=== PATIENT | female | born 1980 | race Caucasian/White ===

== ENCOUNTER 2017-04-12 21:58 | Emergency (ER) | payer OTHER, BC ==
[~2017-04-12] VITALS: Ht 149.9 cm; Wt 65.2 kg
[2017-04-13] MEDS ORDERED: INDOCIN50 MG PO (00:57)
[2017-04-13 01:09] VITALS: BP 134/70
== END 2017-04-13 01:17 | disposition home or self-care (01) ==
LOC: EME 21:58
DX: M54.2 Cervicalgia (principal); S20.212A Contusion of left front wall of thorax, initial encounter; S80.02XA Contusion of left knee, initial encounter; V49.40XA Driver injured in collision with unspecified motor vehicles in traffic accident, initial encounter; W22.10XA Striking against or struck by unspecified automobile airbag, initial encounter; Y92.410 Unspecified street and highway as the place of occurrence of the external cause
CPT/HCPCS: 71020; 72040; 99281; 99284